=== PATIENT | male | born 1960 | race Caucasian/White ===

== ENCOUNTER 2024-03-10 14:13 | Emergency (ER) | payer MEDICARE, SELFPAY ==
[2024-03-10 14:25] VITALS: BP 118/83; PULSE 94; RESP 16; TEMP 36.4; O2SAT 100
--- NOTE | 2024-03-10 14:35 | ED.WOUNDLAC ---
HPI - Wound/Laceration General Chief Complaint: Wound/Laceration Stated Complaint: 2 lacerations on right hand Time Seen by Provider: 03/10/24 14:32 Source: patient Mode of arrival: ambulatory Limitations: no limitations History of Present Illness HPI narrative: Left-hand dominant male presents with wounds/lacerations to his right hand sustained while using table saw today. He notes that he did have gloves on a the time. not on anticoagulation. He is chronically on Tylenol and diclofenac for arthritis anemia taking these medications prior to the injury, approximately 8 or 9:00 a.m. this morning. He is reports his last tetanus shot was approximately 1 year ago. He went to the urgent care 1st used told that they could not do stitches. He denies any tami paresthesias but does state that it stings is rated 3/10 in severity. Related Data Allergies Allergy/AdvReac Type Severity Reaction Status Date / Time No Known Allergies Allergy Mild Verified 03/10/24 14:15 [facility] Past Medical History Medical History (Updated 03/11/24 @ 00:00 by Lolita Angulo) Arthritis Left hand dominant Social History Social History (Updated 03/10/24 @ 16:04 by Corina Carlson MD) Additional occupation/education comments: self-employed as a digital content marketing manager Exam Narrative: GENERAL: Well-appearing, well-nourished, and in no acute distress. HEAD: Normocephalic, atraumatic. EYES: Non injected, non icteric ENT: Nares clear, no rhinorrhea or epistaxis. NECK: Supple. CHEST: Speaking in full sentences. No respiratory distress. HEART: Regular rate and rhythm. Brisk capillary refill in distal fingers. ABDOMEN: Soft, nondistended. EXTREMITIES: Normal range of motion. No edema. patient able to demonstrate full range of motion including flexion-extension of the fingers. He has a 2 cm laceration at the palm at the base of the thumb on the right hand. No nail bed injury. On his right 5th digit/ pinky finger he has a 2 cm laceration distally and a 1 cm superficial laceration located more proximally. SKIN: Warm, dry. Wounds as above, bleeding well controlled NEURO: No focal deficits. Alert and oriented x3. sensation intact throughout. PSYCH: Normal mood and affect. Course Vital Signs Vital signs: Vital Signs Temperature 97.6 F 03/10/24 14:25 Pulse Rate 94 03/10/24 14:25 Respiratory Rate 16 03/10/24 14:25 Blood Pressure 118/83 03/10/24 14:25 Pulse Oximetry 100 03/10/24 14:25 Temperature 97.6 F 03/10/24 14:25 Pulse Rate 94 03/10/24 14:25 Respiratory Rate 16 03/10/24 14:25 Blood Pressure 118/83 03/10/24 14:25 Pulse Oximetry 100 03/10/24 14:25 Procedures Laceration Laceration 1: Date: 03/10/24 Site: hand Side (If applicable): right (fifth digit) Size (cm): 2 Description: linear Pre-repair: wound explored, irrigated, irrigated extensively and minor debridement ====== Skin Level ====== Skin layer closed with: nylon Size (cm): 5-0 Number of sutures: 4 Technique: simple, interrupted ====== Subcutaneous Layer ====== ====== Muscle Layer ====== ====== Tendon Layer ====== Dressing: bacitracin and gauze Laceration 2: Date: 03/10/24 Site: hand Side (If applicable): right (base of first digit) Size (cm): 2 Description: linear Depth: simple, single layer Amount of anesthesia used (mL): 4 Pre-repair: wound explored, irrigated and deep structures intact ====== Skin Level ====== Skin layer closed with: nylon Size (cm): 5-0 Number of sutures: 2 Technique: simple, interrupted ====== Subcutaneous Layer ====== ====== Muscle Layer ====== ====== Tendon Layer ====== Dressincm wound in total though edges superficial; only 1cm deep enough to require sutures; dressing of bacitracin and gauze to
[2024-03-10] MEDS: HYDROcodone/acetaminophen (*CRX) 5-325 MG TABLET 1 TAB PO (15:14)
== END 2024-03-10 16:51 | disposition home or self-care (01) ==
PROVIDERS: Emergency Provider Student in an Organized Health Care Education/Training Program
DX: S61.411A Laceration without foreign body of right hand, initial encounter (principal); S61.216A Laceration without foreign body of right little finger without damage to nail, initial encounter; M19.90 Unspecified osteoarthritis, unspecified site; W31.2XXA Contact with powered woodworking and forming machines, initial encounter
CPT/HCPCS: 12002; 99283; A9270